=== PATIENT | female | born 1980 | race Caucasian/White ===

== ENCOUNTER 2024-07-27 02:25 | Emergency (ER) | payer OTHER ==
[~2024-07-27] VITALS: Ht 182.9 cm; Wt 109.8 kg
[2024-07-27 03:43] LABS: BASOPHILS ABSOLUTE AUTO 0.11 K/mm3 (0.00-0.23); BASOPHILS PERCENT AUTO 1 % (0-2); EOSINOPHILS ABSOLUTE AUTO 0.59 K/mm3 (0.00-0.68); EOSINOPHILS PERCENT AUTO 7 % (0-6); Hematocrit 37.7 % (33.0-51.0); Hemoglobin 11.3 g/dL (11.5-16.0); IMMATURE GRAN ABSOLUTE AUTO 0.04 K/mm3 (0.00-0.10); IMMATURE GRAN PERCENT AUTO 0 % (0-1); LYMPHOCYTES PERCENT AUTO 36 % (21-46); MONOCYTES ABSOLUTE AUTO 0.78 K/mm3 (0.16-1.47); MONOCYTES PERCENT AUTO 9 % (4-13); Mean Corpuscular HGB 23.3 pg (26.0-34.0); Mean Corpuscular Volume 78 fL (80-100); Mean Platelet Volume 9.2 fL (9.1-12.4); NEUTROPHILS ABSOLUTE AUTO 4.26 K/mm3 (1.96-9.15); NEUTROPHILS PERCENT AUTO 48 % (41-73); Platelet Count 423 K/mm3 (150-400); RDW Coefficient Variation 15.8 % (11.7-14.2); RDW Standard Deviation 44.5 fL (35.1-46.3); Red Blood Cell Count 4.84 M/mm3 (3.80-5.20); White Blood Cell Count 8.98 K/mm3 (4.00-11.30)
[2024-07-27 03:48] LABS: Albumin, Blood 3.2 g/dL (3.4-5.0); Albumin/Globulin Ratio 0.9 (0.8-1.8); Bilirubin, Total 0.2 mg/dL (0.1-1.0); Bun/Creatinine Ratio 16.7 (12.0-20.0); Calcium, Blood 8.8 mg/dL (8.5-10.1); Creatinine, Blood 0.66 mg/dL (0.40-1.00); Globulin, Blood 3.6 g/dL (2.2-4.0); Potassium, Blood 4.7 mmol/L (3.5-5.5); Total Protein, Blood 6.8 g/dL (6.4-8.2)
[2024-07-27 04:14] LABS: Source, Urine Clean Catch
[2024-07-27 04:16] LABS: Bilirubin, Urine Neg (Neg); Blood, Urine 5+ (Neg); Glucose Qualitative, Urine Neg (Neg); Ketones, Urine Neg (Neg); Leukocyte Esterase, Urine 1+ (Neg); Nitrite, Urine Neg (Neg); Protein, Urine 4+ (Neg); Urobilinogen, Urine NORM (Normal)
[2024-07-27 04:44] LABS: Appearance, Urine Bloody (Clear); Color, Urine Red (P-Yellow)
[2024-07-27 04:46] LABS: Bacteria Mod /hpf; Red Blood Cells, Urine TNTC /hpf (0-2); Squamous Epithelial Cells Few /hpf (Few)
[2024-07-27] MEDS ORDERED: Cephalexin Monohydrate 500 MG Cap PO ONE (05:10)
[2024-07-27] MEDS ORDERED: CEPH500 PO (05:21)
== END 2024-07-27 05:23 | disposition home or self-care (01) ==
LOC: ER 02:25
PROVIDERS: Student in an Organized Health Care Education/Training Program
DX: N30.00 Acute cystitis without hematuria (principal); N93.9 Abnormal uterine and vaginal bleeding, unspecified
CPT/HCPCS: 80053; 81001; 84703; 85025; 86850; 86900; 86901; 87086; 93005; 93010; 99284-25; A9270

== ENCOUNTER 2024-09-13 04:16 | Emergency (ER) | payer OTHER ==
[~2024-09-13] VITALS: Ht 182.9 cm; Wt 108.9 kg
[~2024-09-13 04:16] MED LIST: CEPH500 PO
[2024-09-13] MEDS ORDERED: SULFAMETHOXAZO1 EAC1 PO (04:35)
[2024-09-13] MEDS ORDERED: DOXYCYCLINE HY100 M1 PO (04:35)
[2024-09-13] MEDS ORDERED: MONT10T PO (04:35)
[2024-09-13] MEDS ORDERED: IPRAT-ALBUT 0.5-3 ML IH (04:35)
[2024-09-13] MEDS ORDERED: ALBUTEROL 108MCG/A A (04:36)
[2024-09-13] MEDS ORDERED: NS 1,000 ML IV SCH (04:45)
[2024-09-13] MEDS ORDERED: Ketorolac Tromethamine 30mg Vial IV ONE (04:50)
[2024-09-13] MEDS ORDERED: Phenazopyridine HCl 100 MG Tab PO ONE (04:50)
[2024-09-13] MEDS ORDERED: Trimethoprim/Sulfamethoxazole DS Tab PO ONE (06:10)
== END 2024-09-13 06:30 | disposition home or self-care (01) ==
LOC: ER 04:16
DX: N39.0 Urinary tract infection, site not specified (principal); N32.89 Other specified disorders of bladder; J44.9 Chronic obstructive pulmonary disease, unspecified; Z68.32 Body mass index [BMI] 32.0-32.9, adult; Z79.899 Other long term (current) drug therapy
CPT/HCPCS: 76770; 96374; 99284-25; A9270; J1885; J7030